=== PATIENT | male | born 1935 | race Caucasian/White ===

== ENCOUNTER → 2016-05-04 08:39 | Outpatient (CLI) | payer OTHER ==
[2016-01-20 06:32] VITALS: BMI 36.8
[~2016-05-04 08:39] MED LIST: ACETAMINOPHEN500 M1 PO; ANTIFUNGAL CREAM TOPICAL; COUMADIN5 MG PO; FOLBIC RF TABL1 EACH PO; FUROSEMIDE40 MG PO; MAG-OX 400 MG400 MG PO; MONODOX100 MG PO; NAPROSYN500 MG PO; ULTRAM50 MG PO
== END | disposition home or self-care (01) ==
LOC: D.US 08:39
DX: M79.605 Pain in left leg (principal); M79.604 Pain in right leg; R60.0 Localized edema; L97.929 Non-pressure chronic ulcer of unspecified part of left lower leg with unspecified severity

== ENCOUNTER 2016-08-03 05:18 | Day surgery (SDC) | payer OTHER ==
[~2016-08-03] VITALS: Ht 177.8 cm; Wt 113.4 kg
--- NOTE | ~2016-08-03 | OP ---
PATIENT NAME: JUAN CARLOS HERNANDEZ MEDICAL RECORD: [id number] :37 LOCATION:[facility] ADMISSION DATE: SURGEON: HARRY HARRY MD DATE OF OPERATION: 08/03/2016 PREOPERATIVE DIAGNOSES: 1. Severe venous stasis disease of the left lower extremity, which is CEAP-6. 2. 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 3. Varicose veins involving the left lower extremity. PREOPERATIVE DIAGNOSES: 1. Severe venous stasis disease of the left lower extremity, which is CEAP-6. 2. 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 3. Varicose veins involving the left lower extremity. 4. Discontinuous lesser saphenous vein, requiring 2 separate sticks on the left calf for access to the lesser saphenous vein for the ablative procedure. PROCEDURE: 1. Left VNUS radiofrequency ablation of the greater saphenous vein. The length of the greater saphenous vein treated was 60.5 cm. 2. VNUS radiofrequency ablation of the left lesser saphenous vein, inferior, a 12.5 cm of lesser saphenous vein was treated. 3. VNUS radiofrequency ablation of the superior aspect of the left lesser saphenous vein. The length of the lesser saphenous vein treated was 30.0 cm. 4. The entire procedure was performed under ultrasonographic guidance with ultrasonographic images placed in the chart and the surgeon's interpretation of the ultrasonographic images was interpreted by the surgeon and is dictated within the body of this operative note. The patient was seen in the holding area. The planned procedure was discussed with the patient including the risks, possible complications and alternatives to procedure. He elects to proceed. OPERATIVE COURSE: The varicose veins were marked while he was standing. He was conveyed to the operating room. General anesthesia was induced by the anesthesia staff. He was positioned supine. The left lower extremity was sterilely prepped and draped. Under real time ultrasound, I was able to percutaneously access the greater saphenous vein easily. A guidewire passed easily. A dilator sheath was advanced. The dilator and wire were removed. Through the sheath, I advanced a radiofrequency catheter. It was advanced to the saphenofemoral junction. I then pulled it back up to 2 cm. I positioned the patient in the Trendelenburg position. I examined the tip of the catheter to make sure that it had not migrated. A tumescent crystalloid solution was then used to infiltrate the perivenular tissues to act as a heat sink. I then activated the radiofrequency catheter. It was activated a number of times treating 60.5 cm of the greater saphenous vein. Endovascular hardware was removed. Small skin nicks were accomplished over 4 varicosities. These varicosities were removed utilizing a phlebectomy hook. The patient was then positioned prone. The left lower extremity was sterilely prepped and draped. I was able to visualize the lesser saphenous vein. I percutaneously accessed the lesser saphenous vein at the level of the ankle. A guidewire passed, but would not pass very far. A dilator sheath was advanced. OPERATIVE REPORT [id number] JUAN CARLOS HERNANDEZ The radiofrequency catheter was advanced under ultrasonographic guidance. A tumescent crystalloid solution was used to infiltrate the perivenular tissues. I then activated the radiofrequency catheter several times and the length treated as listed above. Endovascular hardware was removed. I then went cephalad on the patient's calf. I identified the lesser saphenous vein as well as the lesser saphenous vein popliteal junction. I percutaneously accessed the lesser saphenous vein. The guidewire passed easily. A small skin laine was accomplished. The dilator sheath was advanced. The dilator and wire were removed. The radiofrequency catheter was advanced to the saphenopopliteal junction. I then pulled it back about 2 cm. A tumescent crystalloid solution was used to infiltrate the perivenular tissues. I activated the radiofrequency catheter several times. I pulled back with each activation as I had at the other sites. Endovascular hardware was removed. The length of the lesser saphenous vein treated as listed above. A single varicosity was noted behind the knee. The skin laine was accomplished here and the varicose vein was removed. Sterile dressings were applied. Some of the access sites had to be closed with interrupted horizontal mattress 4-0 Vicryl Rapide sutures. A Coban wrap was applied. The patient was then extubated and conveyed to post-anesthesia care unit where he was in stable condition. TRANSINT:[id number] Voice Confirmation ID: [id number] DOCUMENT ID: [id number] HARRY HARRY MD CC: HARRY RUSS MD, CHANTALE AVILES MD and BLADE PUENTES [id number] DICTATION DATE: 08/03/16 1107 SOFTWARE PROGRAM MANAGER: 08/03/16 1847 [facility] [place] 08/03/16 [facility] [address] [place] [id number]
--- NOTE | ~2016-08-03 | HP ---
PATIENT: JUAN CARLOS HERNANDEZ MEDICAL RECORD: [id number] ACCOUNT: [id number] LOCATION:[facility] : 37 ADMISSION DATE: 08/03/16 HISTORY AND PHYSICAL EXAMINATION CHIEF COMPLAINT: Ulcers. HISTORY OF PRESENT ILLNESS: The patient has CEAP-6 venous stasis ulcers of the left lower extremity. They are quite impressive. The patient has undergone a venous reflux examination. The venous reflux examination was read out that all the disease was on the right side. His right side appears normal. The left side is abnormal. The ultrasonographic interpretation by the large engine assembler was that there was pathologic venous reflux in the right greater saphenous vein as well as in the right lesser saphenous vein. I believe that the sites were transposed and that the reflux was all on the left side. I am discussing this with the radiologist at this time. The risks, possible complications and alternatives to venous reflux and venous stasis disease were discussed with the patient. We discussed the possible need for sclerotherapy. I discussed the case with Dr. Leeroy Johnson as well as Dr. Truman Jack. They concurred that it appears that the sites were transposed on the large engine assembler's report and that there is enlargement of the greater saphenous vein on the right, but the significant reflux is on the left and is in the left greater saphenous vein as well as in the left lesser saphenous vein, so it is the left side that his disease, which goes along. It correlates with the patient's history as well as his physical examination. So, we will plan for treatment on the left side. PAST MEDICAL AND SURGICAL HISTORY: Hip problems of venous stasis disease, which is severe. History of patent ductus arteriosus surgery. SOCIAL HISTORY: Nonsmoker. ALLERGIES: STATINS. MEDICATIONS: Acetaminophen, Coumadin, Lasix, mag oxide as well as naproxen. PHYSICAL EXAMINATION: GENERAL: The patient does not appear acutely ill. He does appear chronically ill. VITAL SIGNS: Reviewed. HEAD: External ears appear normal. EYES: Extraocular movements are intact. NECK: Trachea is midline. CHEST: No intercostal retractions. PULMONARY: Nonlabored, no stridor. ABDOMEN: Nontender. EXTREMITIES: Venous stasis ulcers involving the left lower extremity. IMPRESSION: Severe left lower extremity pathologic venous reflux in the lesser saphenous vein and the greater saphenous vein with CEAP-6 ulcers. PLAN: VNUS procedure. Possible sclerotherapy. Possible phlebectomies. The radiologist is going to dictate an addendum to the report. HISTORY AND PHYSICAL [id number] JUAN CARLOS HERNANDEZ TRANSINT:[id number] Voice Confirmation ID: [id number] DOCUMENT ID: [id number] HARRY HARRY MD CC: HARRY RUSS MD, CHANTALE AVILES MD and BLADE PUENTES [id number] DICTATION DATE: 08/03/16847 VACUUM CLEANER MECHANIC: 08/03/16 0957 [address] [place] [id number] [place] [id number]
[2016-08-03 06:05] LABS: HEMATOCRIT 35.4 % (42.0-54.0); HEMOGLOBIN 11.2 g/dL (13.5-17.5); MCH 26.7 pg (26.0-34.0); MCHC 31.6 g/dL (31.0-37.0); MCV 84.5 fL (80.0-100.0); MEAN PLATELET VOLUME 8.4 fL (7.4-10.4); RBC 4.19 10x6/uL (4.20-6.10); RDW 15.2 % (11.5-14.5); WBC 6.4 10x3/uL (4.8-10.8)
[2016-08-03 06:18] LABS: INR 1.07 (0.85-1.17); PROTIME 13.7 SECONDS (11.6-15.0)
[2016-08-03 06:46] VITALS: BP 127/73; Ht 177.8 cm; Wt 113.4 kg
--- NOTE | 2016-08-03 10:17 | NUR ---
PT POSITIONED PRONE
== END 2016-08-03 13:26 | disposition home or self-care (01) ==
LOC: D.OPS 05:18
PROVIDERS: Anesthesiology
DX: I87.8 Other specified disorders of veins (principal); I83.028 Varicose veins of left lower extremity with ulcer other part of lower leg; L97.829 Non-pressure chronic ulcer of other part of left lower leg with unspecified severity; Z88.8 Allergy status to other drugs, medicaments and biological substances; Z79.01 Long term (current) use of anticoagulants; Z79.1 Long term (current) use of non-steroidal anti-inflammatories (NSAID); Z79.899 Other long term (current) drug therapy; Z01.812 Encounter for preprocedural laboratory examination

== ENCOUNTER 2018-11-06 05:18 | Day surgery (SDC) | payer OTHER ==
[~2018-11-06] VITALS: Ht 177.8 cm; Wt 107.3 kg
[2018-11-06 06:31] LABS: BASOPHILS 0.6 % (0-2); HEMATOCRIT 37.7 % (42.0-54.0); HEMOGLOBIN 12.7 g/dL (13.5-17.5); IMMATURE GRANULOCYTES 0.2 % (0-5); LYMPHOCYTES 24.7 % (15-50); MCH 28.6 pg (26.0-34.0); MCHC 33.7 g/dL (31.0-37.0); MCV 84.9 fL (80.0-100.0); MEAN PLATELET VOLUME 8.9 fL (7.4-10.4); MONOCYTES 10.8 % (2-11); NEUTROPHILS 58.7 % (40-80); PLATELET COUNT 152 10x3/uL (130-400); RBC 4.44 10x6/uL (4.20-6.10); RDW 14.9 % (11.5-14.5); WBC 4.6 10x3/uL (4.8-10.8)
[2018-11-06 06:39] LABS: ANION GAP 10.9 mmol/L (8-16); CALCIUM 8.4 mg/dL (8.5-10.1); CARBON DIOXIDE 27.2 mmol/L (21.0-32.0); CREATININE - SERUM 1.3 mg/dL (0.6-1.3); POTASSIUM - SERUM 4.1 mmol/L (3.5-5.1)
[2018-11-06 07:01] VITALS: BP 132/73; Ht 177.8 cm; Wt 107.3 kg
[2018-11-06 07:04] LABS: INR 1.06 (0.85-1.17); PROTIME 13.3 SECONDS (11.6-15.0)
[2018-11-06] MEDS ORDERED: SULFAMETHOXAZOL1 TA2 PO (07:15)
[2018-11-06] MEDS ORDERED: CYMBALTA20 MG PO (07:16)
[2018-11-06] MEDS ORDERED: ZYRTEC10 MG (07:18)
--- NOTE | 2018-11-06 08:48 | NUR ---
0841-REC'D FROM RR. AWAKE AND ALERT WITHOUT COMPLAINTS. VSS. TOLERATING ICE CHIPS. AWAITING FOR FULL LIQUID TRAY FROM DIETARY.
--- NOTE | 2018-11-06 09:26 | NUR ---
0900-FULL LIQUID TRAY TO ROOM. VSS. DENIES COMPLAINTS, NO DISTRESS.
--- NOTE | 2018-11-06 09:26 | NUR ---
929-DISCHARGE CRITERIA MET. ABLE TO AMBULATE AND URINATE WITHOUT COMPLICATIONS. TOLERATED FULL LIQUID TRAY. DENIES PAIN. REMOVED IV FROM RIGHT HAND WITH CATH INTACTR, DISPOSED INTO SHARPS. COVERED SITE WITH BANDAID. REVIEWED DISCHARGE POST OPERATIVE INSTRUCTIONS WITH PT WITH 2 CORRECTIONAL OFFICERS AT BEDSIDE. VERBALIZED UNDERSTANDING. ESCORTED OUT VIA W/C WITH [facility] TO DRIVE HOME.
--- NOTE | 2018-11-06 11:58 | OP ---
PATIENT NAME: JUAN CARLOS HERNANDEZ MEDICAL RECORD: [id number] :37 LOCATION:[facility] ADMISSION DATE: SURGEON: KARTHIKEYAN BREAUX MD DATE OF OPERATION: 11/06/2018 SURGEON: Karthikeyan Breaux MD ANESTHESIA: TIVA by Isaiah Apple CRNA. DIAGNOSIS: Abnormal digital rectal examination of the prostate. PROCEDURE: Cystoscopy, transrectal ultrasound and prostate biopsy. FINDINGS: On digital rectal examination, he has a right prostatic nodule. Cystoscopy shows bilateral lateral lobe enlargement with obstruction, no median lobe. There are no bladder tumors. There were single ureteral orifices bilaterally. The transrectal ultrasound shows a 22-gram prostate with intraprostatic stones on the right side. SPECIMENS: Prostate biopsy cores. BLOOD LOSS: Minimal. CLINICAL HISTORY: This is an 83-year-old male prisoner. He had a colonoscopy by Dr. Marroquin recently and during the examination, Dr. Marroquin noted a nodule on the patient's prostate. He does not have much in the way of voiding symptomatology. He comes today for a prostate biopsy as well as cystoscopy. HE IS ALLERGIC TO STATINS. He was given Ancef sonography technician to the OR. DESCRIPTION OF PROCEDURE: The patient was given IV sedation. He was placed into the lithotomy position and prepped and draped. A 17-Malagasy cystoscope with 30-degree lens was used for visualization. The findings are as outlined above. We then drained the bladder through the cystoscope sheath and removed the scope. The transrectal ultrasound probe was then introduced. Prostate size measurements were obtained. We obtained a size of 22 grams. There are a collection of prostatic stones exclusively on the right side of the prostate. Most likely this is the cause of the nodularity. Sextant biopsies were obtained with at least 3 cores from each sextant. Once all the specimens were obtained, the procedure was terminated. The patient will be going back to group home. The results will be conveyed to him by Dr. Marroquin. TRANSINT:[id number] Voice Confirmation ID: [id number] DOCUMENT ID: [id number] KARTHIKEYAN BREAUX MD at 1158 CC: [id number] DICTATION DATE: 11/06/18 0839 VENEER JOINER: 11/06/18 1051 [facility] 11/06/18 [place] [id number]
== END 2018-11-06 09:30 | disposition home or self-care (01) ==
LOC: D.OPS 05:18
PROVIDERS: Anesthesiology; ATTEND Urology
DX: N40.1 Benign prostatic hyperplasia with lower urinary tract symptoms (principal); N13.8 Other obstructive and reflux uropathy

== ENCOUNTER 2020-06-29 06:14 | Day surgery (SDC) | payer OTHER ==
[~2020-06-29] VITALS: Ht 177.8 cm; Wt 102.5 kg
--- NOTE | ~2020-06-29 | OP ---
PATIENT NAME: JUAN CARLOS HERNANDEZ MEDICAL RECORD: [id number] :37 LOCATION:[facility] ADMISSION DATE: SURGEON: HARRY HARRY MD DATE OF OPERATION: 06/29/2020 PREOPERATIVE DIAGNOSES: 1. CEAP-6 venous stasis disease involving the left lower extremity, refractory to nonsurgical treatment. 2. Fecal occult blood positivity. 3. Right-sided superior prostate nodule. POSTOPERATIVE DIAGNOSES: 1. CEAP-6 venous stasis disease involving the left lower extremity, refractory to nonsurgical treatment. 2. Fecal occult blood positivity. 3. Right-sided superior prostate nodule. PROCEDURE: 1. Left lower extremity ultrasound-guided targeted foamed sclerotherapy utilizing Asclera to perforating veins in the left lower extremity at the site of the ulcer. 2. Left lower extremity incisional biopsies of the ulcer times 5 to rule out a Marjolin's ulcer. 3. Total colonoscopy to cecum. 4. Hot biopsy forceps polypectomy x1. SURGEON: Harry Harry MD ACCOUNT GENERAL MANAGER: None. BLOOD LOSS: Minimal. ANESTHESIA: General. COMPLICATIONS: None. The risks, possible complications, and alternatives of the procedure were explained to the patient. The discussion specifically included, but was not limited to, bleeding requiring emergency reoperation, infection, nonhealing of the wound, possible need for additional operative procedure or procedures. He elects to proceed. The patient was conveyed to the operating room electively on 06/29/2020. General anesthesia was induced by the anesthesia staff. The left lower extremity was sterilely prepped and draped. Utilizing the color Doppler ultrasound, I interrogated the area over and around the ulcer. This ulcer measured 14.5 cm in the anterior posterior dimension as well as 8.2 cm in the cephalad caudad dimension. Under ultrasonographic guidance utilizing a 27-gauge needle and a foamed sclerosant, and I injected lpn rn veins. I did this probably about 20 times, and once I was satisfied with the sclerotherapy, I then proceeded to perform incisional biopsies at the 12, 3, 6, and 9 o'clock positions as well as one area at the center of the ulcer. These were incisional biopsies that were made hemostatic with electrocautery. We then wrapped the left lower extremity. This was done with Adaptic nonstick dressing covered by 4 x 4s and then Coban and silk tape. OPERATIVE REPORT [id number] JUAN CARLOS HERNANDEZ Attention was then turned to the colonoscopy. The patient was placed in the Jiménez position. A digital rectal examination was performed. There was a right-sided prostate nodule. A colonoscope was inserted through the anus. It was easily advanced to the cecum. The prep was adequate. I slowly withdrew the endoscope. I irrigated and aspirated extensively. I dragged the folds. A combination of normal imaging and narrow band imaging were utilized. There was 2.0 cm sessile polyp, which was removed in its entirety with the hot biopsy forceps polypectomy technique. I continued with withdrawal of the endoscope. A retroflex view was obtained in the rectum. I then unretroflexed the scope and removed it under direct vision. There is no need for the patient to follow up with me in the office unless he develops a complication related to this operative procedure. I specifically discussed this patient with Dr. Smith at the [facility]. If the patient's ulcer does not start to heal in about 3 months, we may have to proceed with excision of the ulcer and then skin grafting or placement of a biologic graft. TRANSINT:[id number] Voice Confirmation ID: [id number] DOCUMENT ID: [id number] HARRY HARRY MD CC: FIONA FERGUSON MD and BLADE SMITH [id number] DICTATION DATE: 06/29/20 164 CORPORATE PHYSICAL SECURITY SUPERVISOR: 06/30/[address] [facility] 06/29/20 [facility] [address] [place] [address]
[~2020-06-29 06:14] MED LIST changes: +CYMBALTA20 MG PO; +SULFAMETHOXAZOL1 TA2 PO; +ZYRTEC10 MG
[2020-06-29 07:06] LABS: BASOPHILS 0.9 % (0-2); EOSINOPHILS 1.9 % (0-7); HEMATOCRIT 26.8 % (42.0-54.0); HEMOGLOBIN 8.8 g/dL (13.5-17.5); LYMPHOCYTES 24.6 % (15-50); MCH 26.8 pg (26.0-34.0); MCHC 32.7 g/dL (31.0-37.0); MEAN PLATELET VOLUME 6.1 fL (7.4-10.4); NEUTROPHILS 62.6 % (40-80); RBC 3.27 10x6/uL (4.20-6.10); RDW 15.3 % (11.5-14.5); WBC 6.9 10x3/uL (4.8-10.8)
[2020-06-29 07:07] LABS: PLATELET COUNT 259 10x3/uL (130-400)
[2020-06-29 07:11] LABS: ANION GAP 14.2 mmol/L (8-16); CALCIUM 8.8 mg/dL (8.5-10.1); CARBON DIOXIDE 23.1 mmol/L (21.0-32.0); CREATININE - SERUM 1.1 mg/dL (0.6-1.3); POTASSIUM - SERUM 4.3 mmol/L (3.5-5.1)
[2020-06-29 07:13] LABS: APTT 31.8 SECONDS (22.8-39.4); INR 1.28 (0.85-1.17); PROTIME 14.8 SECONDS (11.6-15.0)
[2020-06-29] MEDS ORDERED: ELIQUIS2.5 MG (07:18)
[2020-06-29] MEDS ORDERED: HYDROCODONE-AC1 EAC2 (07:20)
[2020-06-29] MEDS ORDERED: KEPPRA250 MG (07:22)
[2020-06-29] MEDS ORDERED: IBUPROFEN200 MG (07:22)
[2020-06-29 07:25] VITALS: BP 119/61; Ht 177.8 cm; Wt 102.5 kg
--- NOTE | 2020-06-29 16:25 | HP ---
PATIENT: JUAN CARLOS HERNANDEZ MEDICAL RECORD: [id number] ACCOUNT: [id number] LOCATION:[facility] : 37 ADMISSION DATE: 06/29/20 PCP: No PCP HISTORY AND PHYSICAL EXAMINATION HISTORY OF PRESENT ILLNESS: The patient has 2 different issues. He has heme-positive stools. Due to his frailty and age, he is being done off site in the hospital. Additionally, he has CEAP-6 venous stasis disease. He has a large ulcer involving the left lower extremity. He has CEAP-4 disease on the right. We are only going to be treating the left side today. It was drained. It has an odor. The ulcer has been enlarging. I have told the patient that it may require more than 1 procedure. PAST MEDICAL AND SURGICAL HISTORY: DVT, history of ASD-VSD repair. MCFP MEDICATIONS: Reviewed. ALLERGIES: STATINS. REVIEW OF SYSTEMS: Negative for diabetes or thyroid problems. PHYSICAL EXAMINATION: GENERAL: The patient appears chronically ill. He does not appear acutely ill. VITAL SIGNS: Reviewed. EARS: External ears appear normal. EYES: Extraocular movements are intact. NECK: Trachea is midline. CHEST: No intercostal retractions. PULMONARY: Nonlabored. No stridor. IMPRESSION: Enlarging venous stasis ulcer of the left lower extremity. PLAN: Biopsies to rule out a Marjolin's ulcer, ultrasound-guided foam sclerotherapy as well as colonoscopy due to heme-positive stools. TRANSINT:[id number] Voice Confirmation ID: [id number] DOCUMENT ID: [id number] HARRY HARRY MD at 1625 CC: BLADE PUENTES [id number] DICTATION DATE: 06/29/20 1046 SONOGRAPHY TECHNICIAN: 06/29/20 1119 [facility] 06/29/20 [place] [id number]
== END 2020-06-29 16:00 | disposition home or self-care (01) ==
LOC: D.OPS 06:14
PROVIDERS: Anesthesiology; ATTEND Surgery
DX: I83.029 Varicose veins of left lower extremity with ulcer of unspecified site (principal); R19.5 Other fecal abnormalities; N40.2 Nodular prostate without lower urinary tract symptoms; K63.5 Polyp of colon